=== PATIENT | female | born 1945 | race Caucasian/White ===

== ENCOUNTER → 2018-07-14 11:57 | Outpatient (CLI) | payer SELFPAY | DX: Z23 Encounter for immunization (principal) | CPT/HCPCS: 90471; 90662 ==

== ENCOUNTER → 2018-12-27 08:25 | Outpatient (CLI) | payer MEDICARE, SELFPAY ==
[2018-12-27 09:55] LABS: Blood Urea Nitrogen 16 mg/dL (7-17); Calcium 9.4 mg/dL (8.4-10.2); Carbon Dioxide 23 mmol/L (22-32); Chloride 105 mmol/L (98-107); Estimated Glomerular Filt Rate 54.1 mL/min (>60); Glucose 111 mg/dL (80-110); HEMOLYSIS < 15 (0-50); Sodium 138 mmol/L (137-145)
[2018-12-27 10:24] LABS: TSH w/ Reflex to FT4 1.41 uIU/mL (0.47-4.68)
[2018-12-27 10:38] LABS: Add Manual Diff / Slide Review NO; Basophils Absolute Auto 100 /uL (0-100); Basophils Percent Auto 2.3 % (0-2); Eosinophils Absolute Auto 400 /uL (0-450); Eosinophils Percent Auto 5.6 % (2-4); Hemoglobin 13.1 g/dL (12.0-16.0); Lymphocytes Absolute Auto 1500 /uL (1100-4500); Mean Corpuscular HGB Conc 32.9 % (30-36); Mean Corpuscular Hemoglobin 30.7 PG (26-34); Mean Corpuscular Volume 93.3 fL (80-100); Monocytes Absolute Auto 500 /uL (0-900); Monocytes Percent Auto 7.5 % (3-14); Neutrophils Absolute Auto 3900 /uL (1500-7000); Neutrophils Percent Auto 60.6 % (50-75); Platelet Count 383 X10^3/uL (150-400); Red Blood Cell Count 4.29 X10^6/uL (4.0-5.2); Red Cell Distribution Width 13.8 % (11.6-14.8); White Blood Cell Count 6.3 X10^3/uL (4.5-11.0)
[2018-12-27 10:42] LABS: Vitamin B12 > 1000 pg/mL (239-931)
== END ==
PROVIDERS: PCP Internal Medicine; Visit Provider Internal Medicine
DX: I10 Essential (primary) hypertension (principal); R53.83 Other fatigue
CPT/HCPCS: 36415; 80048; 82607; 84443; 85025

== ENCOUNTER → 2019-07-09 16:10 | Outpatient (CLI) | payer MEDICARE, SELFPAY | PROVIDERS: PCP Internal Medicine | DX: Z23 Encounter for immunization (principal) | CPT/HCPCS: 90471; 90662 ==

== ENCOUNTER → 2019-07-31 11:08 | Outpatient (CLI) | payer MEDICARE, SELFPAY ==
--- NOTE | 2019-07-31 | DI.RAD.S_ITS ---
PROCEDURE: XR CHEST 2V INDICATIONS: COUGH TECHNIQUE: 2 views of the chest were acquired. COMPARISON: None. FINDINGS: Surgical changes and devices: None. Lungs and pleura: Lungs are clear. No pleural effusions or pneumothorax. Mediastinum: Mediastinal contours are normal. Heart size is normal. Bones and chest wall: No suspicious bony abnormalities. Soft tissues appear unremarkable. IMPRESSION: No acute pulmonary process. Dictated by: Matilde Kapadia M.D. on 07/31/2019 at 16:10 Approved by: Matilde Kapadia M.D. on 07/31/2019 at 16:11
== END ==
PROVIDERS: PCP Internal Medicine; Visit Provider Internal Medicine
DX: R05 Cough (principal)
CPT/HCPCS: 71046

== ENCOUNTER → 2019-10-27 09:11 | Outpatient (CLI) | payer MEDICARE, SELFPAY ==
[2019-10-27 10:24] LABS: Blood Urea Nitrogen 22 mg/dL (7-17); Calcium 9.4 mg/dL (8.4-10.2); Carbon Dioxide 24 mmol/L (22-32); Chloride 106 mmol/L (98-107); Cholesterol 209 mg/dL (140-199); Estimated Glomerular Filt Rate 48.3 mL/min (>60); Glucose 112 mg/dL (80-110); HDL Cholesterol 59 mg/dL (40-60); HEMOLYSIS < 15 (0-50); LDL Cholesterol Calculated 135 mg/dL (<100); Potassium 4.2 mmol/L (3.4-5.1); Sodium 139 mmol/L (137-145); Triglycerides 77 mg/dL (35-150)
== END ==
PROVIDERS: PCP Internal Medicine; Referring Provider Internal Medicine; Visit Provider Internal Medicine
DX: E78.5 Hyperlipidemia, unspecified (principal); I10 Essential (primary) hypertension
CPT/HCPCS: 36415; 80048; 80061

== ENCOUNTER → 2019-11-06 10:06 | Outpatient (CLI) | payer MEDICARE, SELFPAY ==
--- NOTE | 2019-11-06 10:08 | DI.RAD.S_ITS ---
PROCEDURE: XR LUMBAR SPINE 6V W BENDING INDICATIONS: L4/5 slip with left L5 radic TECHNIQUE: 6 views of the lumbar spine acquired. COMPARISON: None. FINDINGS: Bones: 5 nonrib-bearing vertebrae are present. There is normal bony alignment. No vertebral body compression fractures. No suspicious bony lesions. Severe L2-L3, L3-L4 and L4-L5 degenerative changes. Moderate to severe L1-L2 and L5-S1 degenerative disc disease. Severe L3-L4, L4-L5 and L5-S1 facet hypertrophy. Moderate L1-L2 and L2-L3 facet hypertrophy. No pars interarticularis defects. Soft tissues: Overlying bowel gas pattern is normal. No suspicious soft tissue calcifications. Flexion/extension: There is normal range of motion, with preserved normal alignment. Cholecystectomy clips are noted. IMPRESSION: 1. Multilevel degenerative disc disease. 2. Multilevel facet arthropathy. 3. No fracture. No acute osseous lesion. If symptoms and/or clinical suspicion for pathology persists, evaluation with MRI may be helpful for further assessment. Dictated by: Kesha Flores MD, PhD on 11/06/2019 at 12:10 Approved by: Kesha Flores MD, PhD on 11/06/2019 at 12:12
== END ==
PROVIDERS: PCP Internal Medicine; Referring Provider Physical Medicine & Rehabilitation; Visit Provider Physical Medicine & Rehabilitation
DX: M51.16 Intervertebral disc disorders with radiculopathy, lumbar region (principal); M51.17 Intervertebral disc disorders with radiculopathy, lumbosacral region; M47.26 Other spondylosis with radiculopathy, lumbar region; M47.27 Other spondylosis with radiculopathy, lumbosacral region; M43.16 Spondylolisthesis, lumbar region
CPT/HCPCS: 72114

== ENCOUNTER → 2020-04-01 14:41 | Outpatient (CLI) | payer MEDICARE, SELFPAY ==
--- NOTE | 2020-04-01 | DI.RAD.S_ITS ---
PROCEDURE: XR CHEST 2V INDICATIONS: SOB TECHNIQUE: 2 views of the chest were acquired. COMPARISON: [facility], CR, XR CHEST 2V, 07/31/2019, 11:16. FINDINGS: Surgical changes and devices: None. Lungs and pleura: Lungs are clear. No pleural effusions or pneumothorax. Mediastinum: Mediastinal contours are normal. Heart size is normal. Bones and chest wall: No suspicious bony abnormalities. Soft tissues appear unremarkable. IMPRESSION: No acute cardiopulmonary disease. Dictated by: Newton Estrella [facility] Interpreted: Yosi Humphreys MD on 04/01/2020 at 14:53 Approved by: Yosi Humphreys M.D. on 04/01/2020 at 15:52
== END ==
PROVIDERS: PCP Internal Medicine; Referring Provider Internal Medicine; Visit Provider Internal Medicine
DX: R06.02 Shortness of breath (principal)
CPT/HCPCS: 71046

== ENCOUNTER → 2020-04-07 13:20 | Outpatient (CLI) | payer MEDICARE, SELFPAY ==
--- NOTE | 2020-04-07 | DI.RAD.S_ITS ---
PROCEDURE: XR FOOT LT MIN 3V INDICATIONS: LEFT FOOT PAIN TECHNIQUE: 3 views of the foot were acquired. COMPARISON: None. FINDINGS: Bones: No fractures or dislocations. No suspicious bony lesions. There is a diagonal fracture across the base of the 5th metatarsal bone, extending into the articular surface medially. Soft tissues: No tibiotalar joint effusion. Achilles tendon appears normal. IMPRESSION: 5th metatarsal base fracture, extending into the articular surface, only slightly displaced. Dictated by: Yosi Humphreys M.D. on 04/07/2020 at 15:19 Approved by: Ysoi Humphreys M.D. on 04/07/2020 at 15:20
== END ==
PROVIDERS: PCP Internal Medicine; Referring Provider Internal Medicine; Visit Provider Internal Medicine
DX: M79.672 Pain in left foot (principal); S92.352A Displaced fracture of fifth metatarsal bone, left foot, initial encounter for closed fracture; X58.XXXA Exposure to other specified factors, initial encounter
CPT/HCPCS: 73630

== ENCOUNTER → 2020-08-19 11:50 | Outpatient (CLI) | payer MEDICARE, SELFPAY ==
--- NOTE | 2020-08-19 | DI.MRI.S_ITS ---
PROCEDURE: MR LUMBAR SPINE WO CON INDICATIONS: Low back pain TECHNIQUE: Noncontrast sagittal T1 spin echo and T2 fast echo, sagittal STIR, axial T1 and T2 fast spin echo through the lumbar spine. In cases with scoliosis, additional coronal T2 fast spin echo may be performed. COMPARISON: None. FINDINGS: Image quality: Excellent. Alignment and Curvature: There is normal bony alignment. Bone Marrow: Marrow is of normal overall signal. No acute vertebral body compression fractures. Spinal Cord: Conus medullaris terminates at the L1 level. Visualized cord demonstrates normal signal and size. Paraspinous Soft Tissues: No paravertebral masses. Note is made of peripelvic cyst at the right kidney. L1-L2: Degenerative disc disease is moderate to moderately severe, and there is a posterior transverse broad-base disc bulge. Facet osteoarthritis is moderate and there is mild ligamentum flavum hypertrophy. These factors result in concentric spinal stenosis that is moderately severe crowding CSF from much of the thecal sac in this area. Both spinal and foraminal stenosis appears present, moderately severe, at L1-L2 as a result. Foraminal stenosis is slightly greater on the right than the left.. L2-L3: Moderate degenerative disc disease, small posterior transverse disc bulge. Moderate to moderately severe facet osteoarthritis greater on the left than the right and there is [id number] spinal stenosis and moderate right and moderately severe left foraminal stenosis. L3-L4: Moderate degenerative disc disease, small posterior transverse disc bulge. Moderately severe to severe facet osteoarthritis and moderate ligamentum flavum hypertrophy. The facet hyperostosis is greater on the right than the left and therefore there is a combination of moderate spinal stenosis and moderately severe right and moderate left foraminal stenosis. L4-L5: The degenerative disc disease at this level is near severe, with a moderate posterior transverse disc bulge and this combines with severe bilateral facet osteoarthritis and moderately severe ligamentum flavum hypertrophy to produce concentric severe spinal stenosis. Severe bilaterally symmetric foraminal stenosis also is present. L5-S1: Degenerative disc disease is moderately severe, but there is only a mild posterior disc bulge. Facet osteoarthritis is moderately severe to severe, and there is ligamentum flavum hypertrophy. These factors result in concentric spinal stenosis and near severe bilateral foraminal stenosis. IMPRESSION: Overall there are severe degenerative changes along the lumbosacral spine comprised of both spinal and foraminal stenosis as discussed in detail by level in the body of the report above. A disc herniation is not found. The foraminal stenosis is both symmetric and asymmetric as detailed by level. The spinal stenosis noted is concentric, symmetric. Multilevel radiculopathy would be expected in this circumstance. Dictated by: Yosi Humphreys M.D. on 08/19/2020 at 16:01 Approved by: Yosi Humphreys M.D. on 08/19/2020 at 16:10
== END ==
PROVIDERS: PCP Internal Medicine; Referring Provider Internal Medicine; Visit Provider Internal Medicine
DX: M54.5 Low back pain (principal); M51.36 Other intervertebral disc degeneration, lumbar region; M51.37 Other intervertebral disc degeneration, lumbosacral region; M47.816 Spondylosis without myelopathy or radiculopathy, lumbar region; M47.817 Spondylosis without myelopathy or radiculopathy, lumbosacral region; M48.061 Spinal stenosis, lumbar region without neurogenic claudication; M48.07 Spinal stenosis, lumbosacral region
CPT/HCPCS: 72148

== ENCOUNTER → 2021-05-23 16:21 | Outpatient (CLI) | payer MEDICARE, SELFPAY ==
[2021-05-23 16:54] LABS: COVID19 -Nasal RAPID Negative (Negative)
== END ==
PROVIDERS: PCP Internal Medicine; Visit Provider Physical Medicine & Rehabilitation
DX: Z20.822 Contact with and (suspected) exposure to COVID-19 (principal)
CPT/HCPCS: 87635; C9803

== ENCOUNTER 2021-05-25 09:22 | Outpatient (CLI) | payer MEDICARE, SELFPAY ==
[2021-05-25] VITALS (8 sets, daily range): BP systolic 100–127; BP diastolic 58–73; PULSE 61–77; RESP 14–21; TEMP 36.8; O2SAT 93–99
--- NOTE | 2021-05-25 09:23 | DI.RAD.S_ITS ---
PROCEDURE: PAIN L INTERLAMINAR/CAUDAL INJ INDICATIONS: SPONDYLOSIS COMPARISON: None. FINDINGS: Fluoroscopic spot filming was performed to verify placement of spinal needles at the right L4-L5 interlaminar space, as labeled on the films. Appropriate location(s) of the needle tip(s) was confirmed by injection of iodinated contrast. IMPRESSION: Access needle localizes to the right L4-L5 interlaminar space Dictated by: Kesha Flores MD, PhD on 05/25/2021 at 11:54 Approved by: Kesha Flores MD, PhD on 05/25/2021 at 11:55
[2021-05-25] MEDS: fentaNYL 100 MCG/2 ML INJ 50 MCG IV (11:27)
[2021-05-25] MEDS: MIDAZOLAM 5 MG/5 ML VIAL IV (11:27)
[2021-05-25] MEDS: IOPAMIDOL 15 ML VIAL 3 ML INJ (11:28)
[2021-05-25] MEDS: BUPIVACAINE 0.25% (PF) VIAL 2 ML INJ (11:28)
[2021-05-25] MEDS: DEXAMETHASONE 10 MG/ML VIAL 20 MG INJ (11:29)
[2021-05-25] MEDS: methylPREDNISolone acetate 80 MG/ML VIAL INJ (11:33)
--- NOTE | 2021-05-25 11:38 | P.PCN_ITS ---
Date/Time/Diagnoses Date of procedure: 05/25/21 Time of procedure: 11:38 Pre-procedure diagnosis: 1. HNP WITH RADICULAR FEATURES, 2. MULTILEVEL CENTRAL STENOSIS, Post-procedure diagnosis: same Procedure Notes Procedure: 1. FLUOROSCOPICALLY GUIDED CONTRAST CONTROLLED INTERLAMINAR EPIDURAL STEROID INJECTION -L4/5 Indications: Tanisha is referred by Dr. Cervantes for treatment of Bilateral Foraminal Stenosis R>L LE symptoms. Physician: Cornelio Whitlock Total Fluoroscopy time (seconds): 9 Total sedation minutes: 7 Complications: none Procedure in detail & Post-procedure care: FINDINGS Multilevel Central Spinal Stenosis with Nerve Root Compression DESCRIPTION OF PROCEDURE Fluoroscopically guided, contrast-controlled L4/5 translaminar epidural steroid injection. Following review of allergy and review of potential side effects and complications, including, but not necessarily limited to, infection, allergic reaction, local tissue breakdown, temporary as well as permanent nerve injury, paralysis, stroke and possible , the patient indicated that the patient understood and agreed to proceed. An informed consent document was signed by the patient, witnessed by a nurse, and placed in the patient's chart. Additionally, other treatment options including modalities, medications, and physical therapy were reviewed with the patient. After review of previous anaesthesic history and IV conscious sedation the patient was deemed safe to proceed with today?s procedure with IV conscious sedation as ASA class II designation. Safety time-out was performed to confirm patient ID, procedure to be performed and site of procedure. IV sedation was accomplished with a combination of 2mg of Versed and 50mcg of Fentanyl was administered by the RN after DO order, titrated to patient comfort during the course of the procedure while the patient remained responsive to all verbal commands In the prone position, following sterile prep and drape of the lumbar region, the L4/5 translaminar space was identified fluoroscopically. The skin was anesthetized via a 25-gauge, 1.5inch needle with 1% lidocaine solution. At this point, a 22-gauge short bevel spinal needle was atraumatically introduced and advanced under fluoroscopic guidance into the region of the L4/5 translaminar space. Depth was confirmed on lateral view. Radiological data, including multiple fluoroscopic views of the lumbar spine, reveal a spinal needle at the L4/5 translaminar space. Lateral views then show placement of the needle in the epidural space. Subsequent views show contrast material flowing superiorly and inferiorly in the epidural space. No vascular or intrathecal uptake is observed. At this point, using loss of resistance technique with saline and air, the epidural space was entered. This was confirmed following negative aspiration with injection of approximately 1.5cc of Isovue 200, showing excellent epidural flow without vascular or intrathecal uptake. At this point, 1cc of 1% lidocaine solution combined with 3cc or 20mg of dexamethasone and 6mg betamethasone was injected without incident. The patient tolerated the procedure well without signs or symptoms of complicati ons prior to transfer to the recovery area continued monitoring without incident. The patient was then transferred to the recovery area where they were observed for an appropriate period of time after the injection. The patient reported a VAS score of 6 prior to the procedure and a post- procedure VAS of 0. POST OP INSTRUCTIONS The patient was provided a Pain Log to continue to record their response to the target-specific procedure prior to follow-up visit with their referring physician. Additionally, specific post-injection care instructions and a contact number to our office were provided if concerns arise regarding possible complications associated with the procedure are suspected.
== END 2021-05-25 12:00 | disposition home or self-care (01) ==
LOC: RAD 09:23
PROVIDERS: PCP Internal Medicine; Referring Provider Physical Medicine & Rehabilitation; Visit Provider Physical Medicine & Rehabilitation
DX: M48.062 Spinal stenosis, lumbar region with neurogenic claudication (principal); M51.16 Intervertebral disc disorders with radiculopathy, lumbar region
CPT/HCPCS: 62323; 99152; J1040; J1100; J2250; J3010

== ENCOUNTER → 2021-07-25 10:31 | Outpatient (CLI) | payer MEDICARE, SELFPAY ==
[2021-07-25 11:48] LABS: COVID19 -Nasal RAPID Negative (Negative)
== END ==
PROVIDERS: PCP Internal Medicine; Visit Provider Physical Medicine & Rehabilitation
DX: Z20.822 Contact with and (suspected) exposure to COVID-19 (principal)
CPT/HCPCS: 87635; C9803

== ENCOUNTER 2021-07-27 12:54 | Outpatient (CLI) | payer MEDICARE, SELFPAY ==
[2021-07-27] VITALS (8 sets, daily range): BP systolic 107–130; BP diastolic 54–71; PULSE 66–82; RESP 11–22; TEMP 36.9; O2SAT 92–99
[2021-07-27] MEDS: fentaNYL 100 MCG/2 ML INJ 50 MCG IV (13:50)
[2021-07-27] MEDS: MIDAZOLAM 5 MG/5 ML VIAL IV (13:50)
[2021-07-27] MEDS: BETAMETHASONE 30 MG/5 ML MDV 12 MG INJ (13:53)
[2021-07-27] MEDS: BUPIVACAINE 0.25% (PF) VIAL 2 ML INJ (13:53)
[2021-07-27] MEDS: IOPAMIDOL 15 ML VIAL 3 ML INJ (13:53)
[2021-07-27] MEDS: DEXAMETHASONE 10 MG/ML VIAL 20 MG INJ (13:54)
--- NOTE | 2021-07-27 14:00 | P.PCN_ITS ---
Date/Time/Diagnoses Date of procedure: 07/27/21 Time of procedure: 14:00 Pre-procedure diagnosis: 1. HNP WITH RADICULAR FEATURES, 2. MULTILEVEL CENTRAL STENOSIS, Post-procedure diagnosis: same Procedure Notes Procedure: 1. FLUOROSCOPICALLY GUIDED CONTRAST CONTROLLED INTERLAMINAR EPIDURAL STEROID INJECTION - L1/2 Indications: Tanisha is referred by Dr. Cervantes for treatment of Bilateral Foraminal Stenosis L>R LE symptoms. Physician: Cornelio Whitlock Total Fluoroscopy time (seconds): 4 Total sedation minutes: 5 Complications: none Procedure in detail & Post-procedure care: FINDINGS Multilevel Central Spinal Stenosis with Nerve Root Compression DESCRIPTION OF PROCEDURE Fluoroscopically guided, contrast-controlled L1/2 translaminar epidural steroid injection. Following review of allergy and review of potential side effects and complications, including, but not necessarily limited to, infection, allergic reaction, local tissue breakdown, temporary as well as permanent nerve injury, paralysis, stroke and possible , the patient indicated that the patient understood and agreed to proceed. An informed consent document was signed by the patient, witnessed by a nurse, and placed in the patient's chart. Additionally, other treatment options including modalities, medications, and physical therapy were reviewed with the patient. After review of previous anaesthesic history and IV conscious sedation the patient was deemed safe to proceed with todays procedure with IV conscious sedation as ASA class II designation. Safety time-out was performed to confirm patient ID, procedure to be performed and site of procedure. IV sedation was accomplished with a combination of 2mg of Versed and 50mcg of Fentanyl was administered by the RN after DO order, titrated to patient comfort during the course of the procedure while the patient remained responsive to all verbal commands In the prone position, following sterile prep and drape of the lumbar region, the L1/2 translaminar space was identified fluoroscopically. The skin was anesthetized via a 25-gauge, 1.5-inch needle with 1% lidocaine solution. At this point, a 22-gauge short bevel spinal needle was atraumatically introduced and advanced under fluoroscopic guidance into the region of the L1/2 translaminar space. Depth was confirmed on lateral view. Radiological data, including multiple fluoroscopic views of the lumbar spine, reveal a spinal needle at the L1/2 translaminar space. Lateral views then show placement of the needle in the epidural space. Subsequent views show contrast material flowing superiorly and inferiorly in the epidural space. No vascular or intrathecal uptake is observed. At this point, using loss of resistance technique with saline and air, the epidural space was entered. This was confirmed following negative aspiration with injection of approximately 1.5 cc of Isovue 200, showing excellent epidural flow without vascular or intrathecal uptake. At this point, 1 cc of 1% lidocaine solution combined with 4cc or 20mg of dexamethasone and 12mg of betamethasone was injected without incident. The patient tolerated the procedure well without signs or symptoms of complications prior to transfer to the recovery area continued monitoring without incident. The patient was then transferred to the recovery area where they were observed for an appropriate period of time after the injection. The patient reported a VAS score of 6 prior to the procedure and a post- procedure VAS of 0. POST OP INSTRUCTIONS The patient was provided a Pain Log to continue to record their response to the target-specific procedure prior to follow-up visit with their referring physician. Additionally, specific post-injection care instructions and a contact number to our office were provided if concerns arise regarding possible complications associated with the procedure are suspected.
--- NOTE | 2021-07-27 14:05 | DI.RAD.S_ITS ---
PROCEDURE: PAIN L INTERLAMINAR/CAUDAL INJ INDICATIONS: SPONDYLOSIS COMPARISON: [facility], XA, PAIN L INTERLAMINAR/CAUDAL INJ, 05/25/2021, 11:29. FINDINGS: Fluoroscopic spot filming was performed to verify placement of a spinal needle at the L1-L2 level, as labeled on the films. Appropriate location of the needle tip was confirmed by injection of iodinated contrast. IMPRESSION: Intraprocedural examination within normal limits. Dictated by: Gabriel Oropeza M.D. on 07/27/2021 at 13:50 Approved by: Gabriel Oropeza M.D. on 07/27/2021 at 13:50
== END 2021-07-27 14:30 | disposition home or self-care (01) ==
LOC: RAD 12:55
PROVIDERS: PCP Internal Medicine; Referring Provider Physical Medicine & Rehabilitation; Visit Provider Physical Medicine & Rehabilitation
DX: M48.062 Spinal stenosis, lumbar region with neurogenic claudication (principal); M51.16 Intervertebral disc disorders with radiculopathy, lumbar region
CPT/HCPCS: 62323; J0702; J1100; J2250; J3010

== ENCOUNTER 2023-01-29 12:06 | Outpatient (CLI) | payer MEDICARE, SELFPAY ==
[2023-01-29] VITALS (8 sets, daily range): BP systolic 103–141; BP diastolic 57–91; PULSE 69–85; RESP 14–20; TEMP 36.1; O2SAT 95–98
--- NOTE | 2023-01-29 12:08 | DI.RAD.S_ITS ---
PROCEDURE: PAIN L INTERLAMINAR/CAUDAL INJ INDICATIONS: SPONDYLOSIS COMPARISON: [facility], , PAIN L INTERLAMINAR/CAUDAL INJ, 07/27/2021, 13:51. FINDINGS: Fluoroscopic spot filming was performed to verify placement of a spinal needle at the L1-L2 level, as labeled on the films. Appropriate location of the needle tip was confirmed by injection of iodinated contrast. IMPRESSION: Intraprocedural examination within normal limits. Dictated by: Gabriel Oropeza M.D. on 01/29/2023 at 12:04 Approved by: Gabriel Oropeza M.D. on 01/29/2023 at 12:05
[2023-01-29] MEDS: MIDAZOLAM 2 MG/2 ML VIAL IV (12:37)
[2023-01-29] MEDS: BUPIVACAINE 0.25% (PF) VIAL 2 ML INJ (12:40)
[2023-01-29] MEDS: DEXAMETHASONE 10 MG/ML VIAL 20 MG INJ (12:40)
[2023-01-29] MEDS: IOPAMIDOL 15 ML VIAL 3 ML INJ (12:41)
[2023-01-29] MEDS: methylPREDNISolone acetate 80 MG/ML VIAL INJ (12:41)
--- NOTE | 2023-01-29 12:53 | P.PCN_ITS ---
Date/Time/Diagnoses Date of procedure: 01/29/23 Time of procedure: 12:53 Pre-procedure diagnosis: 1. HNP WITH RADICULAR FEATURES, 2. MULTILEVEL CENTRAL STENOSIS, Post-procedure diagnosis: same Procedure Notes Procedure: 1. FLUOROSCOPICALLY GUIDED CONTRAST CONTROLLED INTERLAMINAR EPIDURAL STEROID INJECTION - L1/2 Indications: Tanisha is referred by Dr. Cervantes for treatment of Bilateral Foraminal Stenosis L>R LE symptoms. Physician: Cornelio Whitlock Total Fluoroscopy time (seconds): 10 Total sedation minutes: 7 Complications: none Procedure in detail & Post-procedure care: FINDINGS Multilevel Central Spinal Stenosis with Nerve Root Compression DESCRIPTION OF PROCEDURE Fluoroscopically guided, contrast-controlled L1/2 translaminar epidural steroid injection. Following review of allergy and review of potential side effects and complications, including, but not necessarily limited to, infection, allergic reaction, local tissue breakdown, temporary as well as permanent nerve injury, paralysis, stroke and possible , the patient indicated that the patient understood and agreed to proceed. An informed consent document was signed by the patient, witnessed by a nurse, and placed in the patient's chart. Additionally, other treatment options including modalities, medications, and physical therapy were reviewed with the patient. After review of previous anaesthesic history and IV conscious sedation the patient was deemed safe to proceed with todays procedure with IV conscious sedation as ASA class II designation. Safety time-out was performed to confirm patient ID, procedure to be performed and site of procedure. IV sedation was accomplished with a combination of 2mg of Versed was administered by the RN after DO order, titrated to patient comfort during the course of the procedure while the patient remained responsive to all verbal commands In the prone position, following sterile prep and drape of the lumbar region, the L1/2 translaminar space was identified fluoroscopically. The skin was anesthetized via a 25-gauge, 1.5-inch needle with 1% lidocaine solution. At this point, a 22-gauge short bevel spinal needle was atraumatically introduced and advanced under fluoroscopic guidance into the region of the L1/2 translaminar space. Depth was confirmed on lateral view. Radiological data, including multiple fluoroscopic views of the lumbar spine, reveal a spinal needle at the L1/2 translaminar space. Lateral views then show placement of the needle in the epidural space. Subsequent views show contrast material flowing superiorly and inferiorly in the epidural space. No vascular or intrathecal uptake is observed. At this point, using loss of resistance technique with saline and air, the epidural space was entered. This was confirmed following negative aspiration with injection of approximately 1.5 cc of Isovue 200, showing excellent epidural flow without vascular or intrathecal uptake. At this point, 1 cc of 1% lidocaine solution combined with 3cc or 20mg of dexamethasone and 80mg of depo medrol was injected without incident. The patient tolerated the procedure well without signs or symptoms of complications prior to transfer to the recovery area continued monitoring without incident. The patient was then transferred to the recovery area where they were observed for an appropriate period of time after the injection. The patient reported a VAS score of 6 prior to the procedure and a post- procedure VAS of 0. POST OP INSTRUCTIONS The patient was provided a Pain Log to continue to record their response to the target-specific procedure prior to follow-up visit with their referring physician. Additionally, specific post-injection care instructions and a contact number to our office were provided if concerns arise regarding possible complications associated with the procedure are suspected.
== END 2023-01-29 13:15 | disposition home or self-care (01) ==
LOC: RAD 12:07
PROVIDERS: PCP Internal Medicine; Referring Provider Physical Medicine & Rehabilitation; Visit Provider Physical Medicine & Rehabilitation
DX: M51.16 Intervertebral disc disorders with radiculopathy, lumbar region (principal); M48.061 Spinal stenosis, lumbar region without neurogenic claudication
CPT/HCPCS: 62323; 99152; J1040; J1100; J2250; J3490

== ENCOUNTER → 2023-02-07 12:24 | Outpatient (CLI) | payer MEDICARE, SELFPAY ==
--- NOTE | 2023-02-07 12:26 | DI.RAD.S_ITS ---
PROCEDURE: XR KNEE RT 3V INDICATIONS: bilateral knee pain TECHNIQUE: 3 views of the knee were acquired. COMPARISON: None. FINDINGS: Bones: No fractures or dislocations. No suspicious bony lesions. Mild tricompartmental periarticular osteophyte formation. Soft tissues: Moderate knee joint effusion. No suspicious soft tissue calcifications. IMPRESSION: 1. Osteoarthritis. 2. Knee joint effusion. 3. No acute fracture. No osseous lesion. If symptoms and/or clinical suspicion for pathology persist, further assessment with repeat, or advanced imaging (e.g., CT, MRI, or bone scan) may be helpful for further assessment. Dictated by: Bruno Lutz M.D. on 02/07/2023 at 13:58 Transcribed by: FRANCISCA on 02/07/2023 at 13:59 Approved by: Bruno Lutz M.D. on 02/07/2023 at 16:01
--- NOTE | 2023-02-07 12:26 | DI.RAD.S_ITS ---
PROCEDURE: XR KNEE LT 3V INDICATIONS: bilateral knee pain TECHNIQUE: 3 views of the knee were acquired. COMPARISON: None. FINDINGS: Bones: No fractures or dislocations. No suspicious bony lesions. Mild periarticular osteophyte formation. Soft tissues: No joint effusion. No suspicious soft tissue calcifications. IMPRESSION: Osteoarthritis. No acute fracture. No osseous lesion. If symptoms and/or clinical suspicion for pathology persist, further assessment with repeat, or advanced imaging (e.g., CT, MRI, or bone scan) may be helpful for further assessment. Dictated by: Bruno Lutz M.D. on 02/07/2023 at 13:56 Transcribed by: FRANCISCA on 02/07/2023 at 13:58 Approved by: Bruno Lutz M.D. on 02/07/2023 at 16:00
== END ==
PROVIDERS: PCP Internal Medicine; Referring Provider Internal Medicine; Visit Provider Internal Medicine
DX: M17.0 Bilateral primary osteoarthritis of knee (principal)
CPT/HCPCS: 73562

== ENCOUNTER → 2023-02-08 14:27 | Outpatient (CLI) | payer MEDICARE, SELFPAY ==
--- NOTE | 2023-02-08 14:47 | DI.DEXA.S_ITS ---
Bone Density Report Name: GAMALIEL ELAM Age: 77 Sex: Female Ethnicity: White Date of : 1945 Indication: postmenopausal; screening for osteoporosis; Referring Provider: BRADLEY AVERY Study: Bone densitometry was performed. Exam Date: February 08, 2023 Accession number: [id number] Bone Density: Region BMD T-score Z-score Classification AP Spine(L1, L2, L4) 1.294 2.4 5.0 Normal Femoral Neck (Left) 0.640 -1.9 0.4 Osteopenia Total Hip (Left) 0.721 -1.8 0.2 Osteopenia Femoral Neck (Right) 0.544 -2.7 -0.5 Osteoporosis Total Hip (Right) 0.669 -2.2 -0.2 Osteopenia Total Hip Mean 0.695 -2.0 0.0 Osteopenia World Health Organization criteria for BMD impression classify patients as: Normal (T-score at or above -1.0), Osteopenia (T-score between -1.0 and -2.5), or Osteoporosis (T-score at or below -2.5). 10-year Fracture Risk: FRAX not reported because: Some T-score for Spine Total or Hip Total or Femoral Neck at or below -2.5 Impression: The patient has osteoporosis, based on the Right Femoral Neck T-score. Discussion: INCREASED RISK OF FRACTURE. BONE DENSITY IS UNDESIRABLY LOW AT ONE OR MORE SKELETAL SITES, CONSISTENT WITH POSTMENOPAUSAL OSTEOPOROSIS. This patient's lowest T-score meets the World Health Organization's (WHO) criteria for osteoporosis at one or more sites (T-score -2.5 or below). In untreated patients, the risk of osteoporotic fracture increases approximately two-fold for each 1.0 SD decrease in T-score. Low bone density is not the only risk factor for fracture; also consider factors such as patient's age, frailty or poor health, risk of falling, risk of injury, previous osteoporotic fracture, family history of osteoporosis, cigarette smoking, low body weight, etc. Not everyone with low bone mineral density has osteoporosis; osteomalacia and other metabolic bone disorders should also be considered. Patients who have osteoporosis should be evaluated for specific diseases and conditions (secondary causes) that may cause or contribute to bone loss. The [place] [employer] (AACE) and National Osteoporosis Foundation (NOF) recommend pharmacologic intervention for all postmenopausal women whose T-score is in this range. The patient should follow a healthful lifestyle (good nutrition with adequate calcium and vitamin D, and appropriate weight-bearing exercise). Follow-Up: Consider a repeat BMD and Vertebral Fracture Assessment (VFA) exam in 2 years or sooner if medically necessary, to reassess this patient's status. Reported by: FARHAD DEAL M.D. on 02/08/2023 2:57:00 PM.
== END ==
PROVIDERS: PCP Internal Medicine; Referring Provider Internal Medicine; Visit Provider Internal Medicine
DX: M81.0 Age-related osteoporosis without current pathological fracture (principal)
CPT/HCPCS: 77080

== ENCOUNTER → 2024-01-11 08:58 | Outpatient (CLI) | payer MEDICARE, SELFPAY ==
--- NOTE | 2024-01-11 09:03 | DI.RAD.S_ITS ---
PROCEDURE: XR CHEST 2V INDICATIONS: Fatigue, SOB, Hx of Asthma and Hiatal Hernia TECHNIQUE: 2 views of the chest were acquired. COMPARISON: [facility], CR, XR CHEST 2V, 04/01/2020, 14:35. FINDINGS: Surgical changes and devices: None. Lungs and pleura: Slight bibasilar interstitial prominence, likely reflecting atelectasis and/or scarring. Lungs are clear. No pleural effusions or pneumothorax. Mediastinum: Small hiatal hernia.. Heart size is normal. Bones and chest wall: No suspicious bony abnormalities. Soft tissues appear unremarkable. IMPRESSION: No acute cardiopulmonary abnormality is seen. Dictated by: Allen Oconnell M.D. on 01/11/2024 at 16:10 Approved by: Allen Oconnell M.D. on 01/11/2024 at 16:12
--- NOTE | 2024-01-11 09:03 | DI.RAD.S_ITS ---
PROCEDURE: XR KNEE LT 3V INDICATIONS: progressive pain with loss of ROM TECHNIQUE: 3 views of the knee were acquired. COMPARISON: [facility], CR, XR KNEE RT 3V, 02/07/2023, 12:32. FINDINGS: Bones: No fractures or dislocations. No suspicious bony lesions. Mild medial joint space narrowing with peritoneal air osteophytes in the medial and patellofemoral compartment. Soft tissues: No joint effusion. No suspicious soft tissue calcifications. IMPRESSION: No acute bony abnormality or significant effusion. Mild osteoarthritic changes of the knee. Dictated by: Allen Oconnell M.D. on 01/11/2024 at 16:12 Approved by: Allen Oconnell M.D. on 01/11/2024 at 16:13
[2024-01-11 09:52] LABS: Add Manual Diff / Slide Review NO; Basophils Absolute Auto 100 /uL (0-100); Basophils Percent Auto 1.2 % (0-2); Eosinophils Absolute Auto 300 /uL (0-450); Eosinophils Percent Auto 2.7 % (2-4); Hematocrit 31.7 % (36-46); Hemoglobin 10.6 g/dL (12.0-16.0); Lymphocytes Absolute Auto 1500 /uL (1100-4500); Lymphocytes Percent Auto 15.2 % (25-40); Mean Corpuscular HGB Conc 33.4 % (30-36); Mean Corpuscular Hemoglobin 29.9 PG (26-34); Mean Corpuscular Volume 89.5 fL (80-100); Monocytes Absolute Auto 600 /uL (0-900); Monocytes Percent Auto 6.2 % (3-14); Neutrophils Absolute Auto 7500 /uL (1500-7000); Neutrophils Percent Auto 74.7 % (50-75); Platelet Count 452 X10^3/uL (150-400); Red Blood Cell Count 3.55 X10^6/uL (4.0-5.2); Red Cell Distribution Width 16.3 % (11.6-14.8)
[2024-01-11 10:07] LABS: Erythrocyte Sedimentation Rate 64 MM/HR (0-20)
[2024-01-11 10:13] LABS: HEMOLYSIS < 15 (0-50); Iron 108 ug/dL (37-170)
[2024-01-11 10:18] LABS: Alanine Aminotransferase 12 IU/L (<35); Albumin 4.2 g/dL (3.5-5.0); Albumin Globulin Ratio 1.6 (1.0-2.8); Alkaline Phosphatase 79 U/L (38-126); Aspartate Aminotransferase 18 IU/L (14-36); Bilirubin Total 0.9 mg/dL (0.2-1.3); Blood Urea Nitrogen 14 mg/dL (7-17); Calcium 9.4 mg/dL (8.4-10.2); Carbon Dioxide 25 mmol/L (22-32); Chloride 108 mmol/L (98-107); Cholesterol 201 mg/dL (140-199); Estimated Glomerular Filt Rate 57 mL/min (>60); Globulin 2.6 g/dL (1.7-4.1); Glucose 117 mg/dL (80-110); HDL Cholesterol 67 mg/dL (40-60); HEMOLYSIS < 15 (0-50); LDL Cholesterol Calculated 118 mg/dL (<100); Potassium 4.1 mmol/L (3.4-5.1); Sodium 136 mmol/L (137-145); Total Protein 6.8 g/dL (6.3-8.2); Triglycerides 82 mg/dL (35-150)
[2024-01-11 10:24] LABS: Percent Iron Saturation 33 % (15-50); Total Iron Binding Capacity 328 ug/dL (265-497); Transferrin 256 mg/dL (206-381)
[2024-01-11 10:46] LABS: TSH w/ Reflex to FT4 1.78 uIU/mL (0.47-4.68)
[2024-01-11 11:03] LABS: Vitamin B12 906 pg/mL (239-931)
== END ==
PROVIDERS: PCP Internal Medicine; Referring Provider Physical Medicine & Rehabilitation; Visit Provider Physical Medicine & Rehabilitation
DX: R06.02 Shortness of breath (principal); E78.5 Hyperlipidemia, unspecified; R53.83 Other fatigue; M17.0 Bilateral primary osteoarthritis of knee
CPT/HCPCS: 36415; 71046; 73562; 80053; 80061; 82306; 82607; 83540; 83550; 84443; 85025; 85651

== ENCOUNTER → 2024-01-24 13:42 | Outpatient (CLI) | payer MEDICARE, SELFPAY ==
--- NOTE | 2024-01-24 | DI.RAD.S_ITS ---
PROCEDURE: FL BARIUM SWALLOW INDICATIONS: Other dysphagia COMPARISON: [facility], CR, XR CHEST 2V, 04/01/2020, 14:35. FINDINGS: Function: There is moderate esophageal dysmotility with disorganized tertiary contractions. Severe elicited gastroesophageal reflux. There is obstruction a calibrated barium tablet in the distal esophagus. Morphology: There is short segment focal narrowing and irregularity in the distal esophagus suspicious for mild stricture. Extrinsic mass effects is noted upon the distal esophagus secondary to a moderate to large paraesophageal hiatal hernia. No esophageal diverticula. IMPRESSION: 1. Short segment narrowing and irregularity of the distal esophagus suggesting stricture. Consider EGD for follow-up evaluation. 2. Moderate to large sized paraesophageal hiatal hernia with mass effect upon the distal esophagus. 3. Moderate esophageal dysmotility. 4. Severe gastroesophageal reflux. Dictated by: Juan J Tolliver M.D. on 01/24/2024 at 14:56 Approved by: Juan J Tolliver M.D. on 01/24/2024 at 15:02
== END ==
PROVIDERS: PCP Internal Medicine; Referring Provider Nurse Practitioner Family; Visit Provider Nurse Practitioner Family
DX: R13.19 Other dysphagia (principal); R63.4 Abnormal weight loss; K44.9 Diaphragmatic hernia without obstruction or gangrene; K22.89 Other specified disease of esophagus; K21.9 Gastro-esophageal reflux disease without esophagitis
CPT/HCPCS: 74220

== ENCOUNTER → 2025-03-18 11:19 | Outpatient (CLI) | payer MEDICARE, SELFPAY ==
--- NOTE | 2025-03-18 11:24 | DI.RAD.S_ITS ---
PROCEDURE: XR CHEST 2V INDICATIONS: CHRONIC COUGH TECHNIQUE: 2 views of the chest were acquired. COMPARISON: [facility], CR, XR CHEST 2V, 01/11/2024, 9:15. FINDINGS: Heart, mediastinum and pulmonary vascular: Heart is normal in size and configuration. Small hiatal hernia again noted- mediastinum otherwise normal Pulmonary vascular is normal. Lungs: Moderate patchy vague infiltrate in the right lower lobe appreciated. This may be recurrent or chronic. Pleural spaces: Normal-no effusions or pneumothorax. Bones and soft tissues: Normal IMPRESSION: Moderate patchy right lower lobe infiltrate. This may be recurrent or chronic Small hiatal hernia Dictated by: Bal Colon M.D. on 03/19/2025 at 12:03 Approved by: Bal Colon M.D. on 03/19/2025 at 12:05
== END ==
LOC: RAD 11:22
PROVIDERS: PCP Internal Medicine; Referring Provider Internal Medicine; Visit Provider Internal Medicine
DX: R05.3 Chronic cough (principal); R91.8 Other nonspecific abnormal finding of lung field; K44.9 Diaphragmatic hernia without obstruction or gangrene
CPT/HCPCS: 71046

== ENCOUNTER → 2025-04-19 11:20 | Outpatient (CLI) | payer MEDICARE, SELFPAY ==
--- NOTE | 2025-04-19 11:24 | DI.RAD.S_ITS ---
PROCEDURE: XR CHEST 2V INDICATIONS: CHRONIC COUGH TECHNIQUE: 2 views of the chest were acquired. COMPARISON: [facility], CR, XR CHEST 2V, 03/18/2025, 10:35. [facility], CR, XR CHEST 2V, 01/11/2024, 9:15. FINDINGS: Surgical changes and devices: Cholecystectomy clips. Lungs and pleura: Prominent pulmonary markings most pronounced at the lung bases. Unchanged. No pleural effusions or pneumothorax. Mediastinum: Mediastinal contours are normal. Heart size is normal. Bones and chest wall: No suspicious bony abnormalities. Soft tissues appear unremarkable. IMPRESSION: No consolidation. Prominent pulmonary markings most pronounced at the lung bases. This finding could be due to interstitial lung disease. Consider further evaluation with CT chest or high-resolution chest CT. Dictated by: Ren Abraham M.D. on 04/19/2025 at 14:26 Approved by: Ren Abraham M.D. on 04/19/2025 at 14:28
== END ==
PROVIDERS: PCP Internal Medicine; Referring Provider Internal Medicine; Visit Provider Internal Medicine
DX: R05.3 Chronic cough (principal)
CPT/HCPCS: 71046

== ENCOUNTER → 2025-04-20 12:51 | Outpatient (CLI) | payer MEDICARE, SELFPAY ==
--- NOTE | 2025-04-20 12:52 | DI.CT.S_ITS ---
PROCEDURE: CT CHEST WO CON INDICATIONS: CHRONIC COUGH TECHNIQUE: Noncontrast 5 mm thick sections acquired from the pulmonary apices to the posterior costophrenic angles. 1 mm lung window, 5 mm thick coronal and sagittal and 7 mm axial MIP reformats were then acquired. For radiation dose reduction, the following was used: automated exposure control, adjustment of mA and/or kV according to patient size. COMPARISON: None. FINDINGS: Image quality: Diagnostic. Moderate bilateral perihilar and lower lobe peribronchial thickening and patchy alveolar opacities, as well as some bronchial filling and or mucous plugging posterior bilateral lower lobes. Bronchopneumonia, viral infection, bronchitis/bronchiolitis, aspiration pneumonitis, asthma or other process should be considered. Continued follow-up is needed. Large hiatal hernia paraesophageal type is noted which may predispose to gastric volvulus although no CT evidence of volvulus at this time. Nonspecific wall thickening of the mid and distal esophagus into the stomach some of which may be artifact from partial nondistention although esophagitis, gastritis or other process could be considered. Mildly enlarged mediastinal, aortic or pulmonary, anterior tracheal, bilateral paratracheal, subcarinal lymph nodes the largest conglomeration left lobe paratracheal measures up to approximately 1.2 cm short axis commonly reactive/inflammatory although given the size cannot exclude pathologically enlarged, neoplastic, metastatic nodes. Irregular appearance of the superior aspect of the left kidney commonly represents numerous parapelvic cysts although left hydronephrosis not excluded partially imaged. Surgical clips status post cholecystectomy. Otherwise visualized portions of the liver, pancreas, adrenal glands, spleen, right kidney within normal limits. Mild dextroscoliosis, moderate degenerative changes of the thoracic spine. Lower Neck: No enlarged lymph nodes. Thyroid: No thyroid nodules which require sonographic follow up, per consensus guidelines. Lungs and Pleura: No pneumothorax or pleural effusions. Heart: Heart size is normal. No pericardial effusion. Thoracic Vessels: The aorta and pulmonary arteries demonstrate normal size. IMPRESSION: Abnormal peribronchial thickening and patchy opacities predominantly in the lower lobes as discussed above. Mildly enlarged lymph nodes as discussed above. Left renal peripelvic cyst cannot exclude hydronephrosis partially imaged. Large hiatal hernia with wall thickening distal esophagus into the stomach. Follow-up suggested. Dictated by: Souleymane Garcia M.D. on 04/21/2025 at 11:38 Approved by: Souleymane Garcia M.D. on 04/21/2025 at 11:58
== END ==
PROVIDERS: PCP Internal Medicine; Referring Provider Internal Medicine; Visit Provider Internal Medicine
DX: K44.9 Diaphragmatic hernia without obstruction or gangrene (principal); R59.0 Localized enlarged lymph nodes; N28.1 Cyst of kidney, acquired; R05.3 Chronic cough
CPT/HCPCS: 71250

== ENCOUNTER 2025-04-21 14:56 | Inpatient (IN) | payer MEDICARE, SELFPAY ==
[2025-04-21] VITALS (8 sets, daily range): BP systolic 111–191; BP diastolic 51–96; PULSE 83–129; RESP 17–30; TEMP 36.8–38.6; O2SAT 92–94; BMI 24.7; BMI 25.4
--- NOTE | 2025-04-21 15:42 | DI.RAD.S_ITS ---
PROCEDURE: XR CHEST 1V INDICATIONS: suspected sepsis TECHNIQUE: One view of the chest was acquired. COMPARISON: [facility], CR, XR CHEST 2V, 04/19/2025, 11:21. [facility], CT, CT CHEST WO CON, 04/20/2025, 13:01. FINDINGS: Surgical changes and devices: None. Lungs and pleura: Mild bibasilar patchy reticulonodular opacities. No pleural effusions or pneumothorax. Mediastinum: Mediastinal contours appear normal. Heart size is normal. Bones and chest wall: No suspicious bony lesions. Overlying soft tissues appear unremarkable. IMPRESSION: Mild bibasilar patchy reticulonodular opacities, similar when compared to the CT from the day prior. Approved by: Ashkan Quiros M.D. on 04/21/2025 at 17:19
--- NOTE | 2025-04-21 15:42 | EKG_ITS ---
[address] [address] Test Date: 2025-04-21 Pat Name: Tanisha Greenfield Department: [facility] Room: Gender: Female Dev Ops Engineer: BOBBY : 1945 Requested By: Order Number: [id number] Reading MD: Reji Sanchez Measurements Intervals [place] Rate: 96 P: 68 MA: 160 QRS: 32 QRSD: 82 T: 43 QT: 356 QTc: 449 Interpretive Statements Sinus rhythm with premature supraventricular complexes Electronically Signed On 04-30-2025 13:51:37 PDT by Reji Sanchez
[2025-04-21] MEDS: ACETAMINOPHEN 325 MG TABLET 650 MG PO (16:18)
[2025-04-21 16:19] LABS: Add Manual Diff / Slide Review NO; Hematocrit 29.6 % (36-46); Hemoglobin 10.0 g/dL (12.0-16.0); Lymphocytes Absolute Auto 400 /uL (1100-4500); Mean Corpuscular HGB Conc 33.8 % (30-36); Mean Corpuscular Hemoglobin 31.3 PG (26-34); Mean Corpuscular Volume 92.4 fL (80-100); Platelet Count 361 X10^3/uL (150-400)
[2025-04-21] MEDS: SODIUM CHLORIDE 0.9% 1,000 ML 1000 ML IV (16:19)
[2025-04-21 16:22] LABS: INR 1.1 (0.9-1.3); Prothrombin Time 12.4 SECONDS (9.4-12.5)
[2025-04-21 16:25] LABS: PTT Partial Thromboplastin Tim 31 SECONDS (25.1-36.5)
[2025-04-21 16:26] LABS: Lactate (Lactic Acid) 1.0 mmol/L (0.7-2.1)
[2025-04-21 16:27] LABS: Alanine Aminotransferase 13 IU/L (<35); Albumin 4.0 g/dL (3.5-5.0); Albumin Globulin Ratio 1.3 (1.0-2.8); Alkaline Phosphatase 81 U/L (38-126); Blood Urea Nitrogen 16 mg/dL (7-17); Calcium 8.9 mg/dL (8.4-10.2); Carbon Dioxide 23 mmol/L (22-32); Chloride 106 mmol/L (98-107); Estimated Glomerular Filt Rate 51 mL/min (>60); Globulin 3.2 g/dL (1.7-4.1); Glucose 111 mg/dL (70-99); HEMOLYSIS < 15 (0-50); Lipase 36 U/L (23-300); Potassium 4.1 mmol/L (3.4-5.1); Sodium 133 mmol/L (137-145); Total Protein 7.2 g/dL (6.3-8.2)
[2025-04-21 16:43] LABS: Procalcitonin 0.062 ng/mL (<0.5)
--- NOTE | 2025-04-21 16:58 | ED_ITS ---
HPI - General Adult General Chief complaint: Fever Stated complaint: weakness Time Seen by Provider: 04/21/25 16:37 Source: patient Mode of arrival: Wheelchair History of Present Illness HPI narrative: Patient here for chills fever for the past couple of days. Patient recently treated for outpatient pneumonia by Dr. Breanna dalal however still has not feel better. Now requiring supplemental oxygen. Patient is a former smoker. Denies any chest pain. Fever noted on arrival. Fever medication provided. Patient in no distress. Related Data Home Medications ?Medication ?Instructions ?Recorded ?Confirmed losartan 100 mg tablet (Cozaar) 100 mg PO QDAY ##0 04/21/25 albuterol sulfate 90 mcg/actuation 1 puff inhalation P RN 05/15/21 04/21/25 aerosol inhaler (Ventolin HFA) escitalopram oxalate 10 mg tablet 10 mg PO DAILY 05/1504/21/25 montelukast 10 mg tablet 10 mg PO DAILY 05/15/2103/25 (Singulair) amlodipine 10 mg tablet 10 mg PO DAILY 02/15/2303/25 fluticasone 250 mcg-salmeterol 50 1 ea inhalation BID 02/19/24 04/21/25 mcg/dose blistr powdr for inhalation (Sophiaela Inhub) pantoprazole 40 mg tablet,delayed 40 mg PO DAILY 02/1804/21/25 release Previous Rx's ?Medication ?Instructions ?Recorded Disabled Parking Permit #1 ea 04/08/23 Allergies Allergy/AdvReac Type Severity Reaction Status Date / Time Penicillins (PENICILLINS) Allergy Unknown unknown Verified 04/21/25 15:38 procaine (From NOVOCAIN) Allergy Unknown unknown Verified 04/21/25 15:38 Review of Systems Review of Systems Narrative: GENERAL: Positive chills, fatigue, malaise, fever, sweats. HEENT: Negative sinus pain, ear pain, sore throat RESPIRATORY: Negative dyspnea, positive cough CARDIOVASCULAR: Negative chest pain, palpitations GASTROINTESTINAL: Negative vomiting, nausea, abdominal pain : Negative dysuria, frequency, hematuria MUSCULOSKELETAL: Negative muscle or bony pain SKIN: Negative rash, skin lesions NEUROLOGIC: Negative weakness, numbness ROS Unobtainable: All systems reviewed & are unremarkable except as noted in HPI and below Patient History Medical History Hyperlipemia Fatigue Hiatal hernia Degenerative joint disease of knee HNP (herniated nucleus pulposus) Spondylolisthesis of lumbar region Lumbar stenosis with neurogenic claudication Social History household members: none Smoking Status: Former smoker alcohol intake: never Smoking Status: Former smoker Exam Narrative Exam Narrative: GENERAL: in no distress, not toxic not dyspneic HEAD: Normocephalic. EYES: Pupils equal round ENT: Mucous membranes moist. NECK: Trachea midline. CARDIOVASCULAR: Regular rate and rhythm RESPIRATORY: Patient has very coarse lung sounds by lateral bases. Able speak full sentences. Feels very short of breath when she is walking in the hallway. GASTROINTESTINAL: Abdomen soft, non-tender EXTREMITIES: No gross deformities. BACK: No flank tenderness. NEURO: AOx4. Clear speech SKIN: Warm and dry PSYCH: Not anxious, is cooperative Initial Vital Signs Initial Vital Signs: Vital Signs Temperature 101.4 F H 04/21/25 15:38 Pulse Rate 107 H 04/21/25 15:38 Respiratory Rate 17 04/21/25 15:38 Blood Pressure 191/96 H 04/21/25 15:38 Pulse Oximetry 93 04/21/25 15:38 Oxygen Delivery Method Room Air 04/21/25 15:38 Course Orders Ordered: Albuterol (Albuterol 2.5 Mg/3 Ml Neb (Adult)) 2.5 mg INH [id number] PRN PRN Reason: Shortness Of Breath Amlodipine Besylate (Amlodipine 5 Mg Tablet) 10 mg PO DAILY [facility] Dexamethasone (Dexamethasone 10 Mg/Ml Vial) 6 mg IV DAILY [facility] Last Admin: 04/21/25 20:01 Dose: 6 mg Documented By: DAISHA Escitalopram Oxalate (Escitalopram 10 Mg Tablet) 10 mg PO DAILY [facility] Cefepime HCl 2 gm/ Sodium (Chloride) 100 mls @ 200 mls/hr IV Q12H [facility] Last Infusion: 04/21/25 20:59 Dose: Infused Documented By: Admin: 04/21/25 20:29 Dose: 200 mls/hr Documented By: DAISHA Remdesivir 100 mg/ Sodium (Chloride) 250 mls @ 250 mls/hr IV DAILY [facility] Stop: 04/25/25 09:59 Ondansetron HCl (Ondansetron 4 Mg/2 Ml Inj) 4 mg IV NOW PRN PRN Reason: Nausea And Vomiting Ondansetron HCl (Ondansetron 4 Mg Odt) 4 mg PO NOW PRN PRN Reason: Nausea And Vomiting Pantoprazole Sodium (Pantoprazole Dr 40 Mg Tablet) 40 mg PO DAILY [facility] Discontinued Medications Acetaminophen (Acetaminophen 325 Mg Tablet) 650 mg PO NOW ONE Stop: 04/21/25 16:09 Last Admin: 04/21/25 16:18 Dose: 650 mg Documented By: BOBBY Albuterol (Albuterol 2.5 Mg/3 Ml Neb (Adult)) 2.5 mg INH [id number] [facility] Last Admin: 04/21/25 23:23 Dose: Not Given Documented By: Admin: 04/21/25 20:02 Dose: Not Given Documented By: KRYSTIN Budesonide (Budesonide 0.5 Mg/2 Ml Neb) 0.5 mg INH RTBID [facility] Last Admin: 04/21/25 20:02 Dose: Not Given Documented By: KRYSTIN Sodium Chloride (Normal Saline 0.9%) 1,000 mls @ 1,000 mls/hr IV BOLUS ONE Stop: 04/21/25 16:40 Last Infusion: 04/21/25 17:55 Dose: Infused Documented By: Admin: 04/21/25 16:19 Dose: 1,000 mls/hr Documented By: BOBBY Ceftriaxone Sodium 2,000 mg/ (Sodium Chloride) 100 mls @ 200 mls/hr IV NOW ONE Stop: 04/21/25 16:58 Last Infusion: 04/21/25 17:55 Dose: Infused Documented By: Admin: 04/21/25 17:21 Dose: 200 mls/hr Documented By: BOBBY Doxycycline Hyclate 100 mg/ (Sodium Chloride) 100 mls @ 100 mls/hr IV NOW ONE Stop: 04/21/25 16:58 Last Infusion: 04/21/25 19:55 Dose: Infused Documented By: Admin: 04/21/25 18:51 Dose: 100 mls/hr Documented By: CLARICE Vital Signs Vital signs: Vital Signs - 8 hr 04/21/25 15:38 04/21/25 16:43 Temperature 101.4 F H Pulse Rate 107 H 96 H Respiratory Rate 17 20 Blood Pressure 191/96 H Pulse Oximetry 93 93 Oxygen Delivery Method Room Air Medical Decision Making Lab Data 04/21/25 16:05 04/21/25 16:05 Labs: Lab Results 04/21/25 Range/Units 16:05 WBC 7.7 (4.5-11.0) X10^3/uL RBC 3.21 L (4.0-5.2) X10^6/uL Hgb 10.0 L (12.0-16.0) g/dL Hct 29.6 L (36-46) % MCV 92.4 (80-100) fL MCH 31.3 (26-34) PG MCHC 33.8 (30-36) % RDW 16.9 H (11.6-14.8) % Plt Count 361 (150-400) X10^3/uL Neut % (Auto) 81.2 H (50-75) % Lymph % (Auto) 4.7 L (25-40) % Mcclain % (Auto) 10.9 (3-14) % Eos % (Auto) 1.8 L (2-4) % Baso % (Auto) 1.4 (0-2) % Neut # (Auto) 6300 (3138-7895) /uL Lymph # (Auto) 400 L (7037-0530) /uL Mcclain # (Auto) 800 (0-900) /uL Eos # (Auto) 100 (0-450) /uL Baso # (Auto) 100 (0-100) /uL PT 12.4 (9.4-12.5) SECONDS INR 1.1 (0.9-1.3) APTT 31 (25.1-36.5) SECONDS Sodium 133 L (137-145) mmol/L Potassium 4.1 (3.4-5.1) mmol/L Chloride 106 (98-107) mmol/L Carbon Dioxide 23 (22-32) mmol/L BUN 16 (7-17) mg/dL Creatinine 1.09 H (0.52-1.04) mg/dL Estimated GFR 51 L (>60) mL/min BUN/Creatinine Ratio 14.7 (6-22) Glucose 111 H (70-99) mg/dL Lactate 1.0 (0.7-2.1) mmol/L Calcium 8.9 (8.4-10.2) mg/dL Total Bilirubin 0.5 (0.2-1.3) mg/dL AST 24 (14-36) IU/L ALT 13 (<35) IU/L Alkaline Phosphatase 81 (38-126) U/L Total Protein 7.2 (6.3-8.2) g/dL Albumin 4.0 (3.5-5.0) g/dL Globulin 3.2 (1.7-4.1) g/dL Albumin/Globulin Ratio 1.3 (1.0-2.8) Lipase 36 (23-300) U/L Procalcitonin 0.062 (<0.5) ng/mL SARS-CoV-2 (PCR) Positive H (Negative) Influenza A (RT-PCR) Flu a negative (NEGATIVE) Influenza B (RT-PCR) Flu b negative (NEGATIVE) RSV (PCR) Negative (Negative) MDM Narrative Medical decision making narrative: Patient here for chills fever for the past couple of days. Patient recently treated for outpatient pneumonia by Dr. Breanna dalal however still has not feel better. Now requiring supplemental oxygen. Patient is a former smoker. Denies any chest pain. Fever noted on arrival. Fever medication provided. Patient in no distress. After history and exam, CBC CMP procalcitonin lactic acid blood culture chest x- ray EKG admit, Rocephin doxycycline, fever control MDM Differential considered: Includes but not limited to community-acquired pneumonia bronchitis viral upper respiratory infection Medical records reviewed: No recent visit for this complaint Lab Test results independently reviewed as above. Pertinent findings: WBC 7.7 hemoglobin 10.0 INR 1.1 sodium 133 potassium 4.1 GFR 51 procalcitonin 0.062 lipase 36 lactic acid 1.0, positive COVID Independently reviewed EKG sinus rhythm rate 96 Imaging studies independently reviewed: Chest x-ray bilateral patchy infiltrates Consultations: Spoke with hospitalist, dr cameron, will admit pt Re-evaluations: 5:00 p.m.. Reviewed results with patient, agrees for admission. Wearing supplemental oxygen. Antibiotics have been started. 5:23 p.m.. Patient dropped down to 88% room air on walking in hallway room air. Discussion: Appropriate for admission for antibiotics for community-acquired pneumonia. Patient recently on antibiotics and has not improved. She was on Levaquin. Diagnosis: Community-acquired pneumonia Discharge Plan Departure Patient Disposition: Admitted as Observation Clinical Impression: COVID Community acquired pneumonia Qualifiers: Laterality: unspecified laterality Qualified Code(s): J18.9 - Pneumonia, unspecified organism Admit Date/Time: 04/21/25 17:30 Admit Provider: Yosi Cameron
[2025-04-21] MEDS: cefTRIAXone 2,000 MG in SODIUM CHLORIDE 0.9% 100 ML 200 MG IV (17:21)
[2025-04-21 17:32] LABS: Influenza A - CEPHEID Flu A NEGATIVE (NEGATIVE); Influenza B - CEPHEID Flu B NEGATIVE (NEGATIVE)
[2025-04-21 17:37] LABS: COVID-19 CEPHEID 4-PLEX PCR POSITIVE (Negative)
--- NOTE | 2025-04-21 17:54 | PC.NURSE ---
87%-88% spO2 on ambulation.
--- NOTE | 2025-04-21 17:56 | PC.NURSE ---
Pt placed on 2L O2 per MD Edouard order. 93% RA when resting.
--- NOTE | 2025-04-21 18:22 | PC.NURSE ---
Pt reports fever malaise, weakness, cough, some difficulty breathing on exertion
[2025-04-21] MEDS: DOXYCYCLINE 100 MG in SODIUM CHLORIDE 0.9% 100 ML IV (18:51)
[2025-04-21] MEDS: DEXAMETHASONE 10 MG/ML VIAL 6 MG IV (20:01)
[2025-04-21] MEDS: CEFEPIME 2 GM in SODIUM CHLORIDE 0.9% 100 ML IV (20:29)
[2025-04-22 05:00] VITALS: BP 108/54; PULSE 80; RESP 18; TEMP 37.1; O2SAT 94
[2025-04-22] MEDS: CEFEPIME 2 GM in SODIUM CHLORIDE 0.9% 100 ML IV ×2 (09:16→21:03)
[2025-04-22] MEDS: AMLODIPINE 5 MG TABLET 10 MG PO (09:16)
[2025-04-22] MEDS: ESCITALOPRAM 10 MG TABLET PO (09:16)
[2025-04-22] MEDS: PANTOPRAZOLE DR 40 MG TABLET PO (09:17)
[2025-04-22] MEDS: DEXAMETHASONE 10 MG/ML VIAL 6 MG IV (09:20)
[2025-04-22] MEDS: REMDESIVIR 100 MG in SODIUM CHLORIDE 0.9% 250 ML 250 MG IV (10:15)
[2025-04-22 12:00] VITALS: BP 116/68; PULSE 80; RESP 19; TEMP 36.5; O2SAT 96
[2025-04-22] MEDS: DOXYCYCLINE 100 MG in SODIUM CHLORIDE 0.9% 100 ML IV (13:15)
--- NOTE | 2025-04-22 15:37 | CM.DANOTE ---
Patient is an 79 yo female who was admitted INPT Status on 04/21/25 for COVID/pneumonia. Pt has [facility] and [employer] for insurance and her PCP is Dr. Breanna Cervantes at [facility]. EMR was reviewed. Per MD, pt failed outpt PNA tx and admitted for SOB and determined COVID+/PNA. Was on 2LO2 but now attempting to wean to room air. Not yet stable for discharge today. Due to triage needs, no bedside assessment completed today. Per RN, Pt has been independent in room and able to ambulate with SBA and tolerating diet and no concerns noted. Pt's son was bedside earlier today. Currently no PT/OT needs identified at this time. Patient resides in [place] alone and is active and independent at baseline, does not typically use DME for ambulation. Pt's son/POA, Dr. Whitlock, lives next door and can assist as needed. Plan: SW to follow to confirm safe plan of discharge home when stable with supportive local son and any further identified discharge planning needs. ZENOBIA [place] Discharge Planning/Care Management CM Discharge Assessment Start: 04/21/25 17:50 Freq: Status: Active Protocol: Document 04/22/25 15:30 BF (Rec: 04/22/25 15:35 BF [id number]) Discharge Planning Assessment Assigned Discharge ZENOBIA Jessica Damage Prevention Coordinator DPOA/Assigned son Dr. Whitlock Designee Name Contact Information [phone] Advance Directives? No Advance Directives No on File History Provided By Patient,Family Member,Medical Record Has Patient been No admitted in last 30 days? Prior Living House Arrangements Comment SON LIVES NEXT DOOR Household Members none Type of Drives own vehicle transporation used prior to admit Independent with ADL Yes 's Is patient alert and Yes oriented? Needs Assistance Home Chores / Shopping With Caregiver for No Another Barriers to No Discharge Discharge Plan Home Transportation Likely son to transport if safe for home Arrangement Referrals Initiated None needed Additional Comment Pending progress, currently no PT needs Review Status In Process Please Provide Date 04/22/25 Initial DC Assessment Was Performed Next Review Type Continued Stay Review
--- NOTE | 2025-04-22 17:37 | PM.HP.1 ---
History of Present Illness History of Present Illness Date Patient Seen: 04/21/25 Chief complaint: COVID pneumonia Narrative: Chief complaint: Increasing cough congestion and shortness for breath with exertion despite level with positive COVID test History of present illness: 79-year-old female with a history of asthma recently treated with Levaquin for upper and lower respiratory infection initially started to improve and then started to become more congested and then have increasing dyspnea with exertion. Cough is persistent but nonproductive. Patient did not have any fever or chills with this episode. In the emergency department workup was significant for chest x-ray with diffuse reticular lower lobe airspace appearance on plain x-ray COVID test white count 7.7 81% neutrophils sodium 133 potassium 4.1 BUN 16 creatinine 1.09 For past medical history social history surgical history and family history please see the bottom of the note Review of systems: No unusual weight loss or weight gain No chest pain or palpitations No nausea vomiting diarrhea No paresthesia paresis No urinary symptoms Physical exam: Very pleasant elderly female no acute distress at the time of my examination HEENT unremarkable Lungs with diffuse wheezes and air trapping good air movement but somewhat restricted no crackle Abdomen is benign Extremities no edema Alert and oriented cogent nonfocal neurologic exam Extremities no edema For objective laboratory and imaging studies please see the bottom of the note: Assessment and plan: COVID pneumonia with possible failure of Levaquin either due to MRSA or Pseudomonas Cefepime doxycycline Decadron and remdesivir Bronchodilators as needed DVT prophylaxis: SCDs only Code status: Full code blue 55 minutes were involved in management of this time including [id number] patient evaluation discussion with son elevation examination review of laboratory and imaging findings including direct visualization of imaging by myself and consultation of the record [facility] Medical History Hyperlipemia Fatigue Hiatal hernia Degenerative joint disease of knee HNP (herniated nucleus pulposus) Spondylolisthesis of lumbar region Lumbar stenosis with neurogenic claudication Social History household members: none Smoking Status: Former smoker alcohol intake: never Meds Home Medications and Allergies Home Medications ?Medication ?Instructions ?Recorded ?Confirmed ?Type losartan 100 mg tablet (Cozaar) 100 mg PO QDAY ##0 04/12/17 04/21/25 History albuterol sulfate 90 mcg/actuation 1 puff inhalation PRN 05/15/21 04/21/25 History aerosol inhaler (Ventolin HFA) escitalopram oxalate 10 mg tablet 10 mg PO DAILY 05/15/21 04/21/25 History montelukast 10 mg tablet 10 mg PO DAILY 05/15/21 04/21/25 History (Singulair) amlodipine 10 mg tablet 10 mg PO DAILY 02/15/23 04/21/25 History Disabled Parking Permit #1 ea 04/08/23 04/21/25 Rx fluticasone 250 mcg-salmeterol 50 1 ea inhalation BID 02/19/24 04/21/25 History mcg/dose blistr powdr for inhalation (Wixela Inhub) pantoprazole 40 mg tablet,delayed 40 mg PO DAILY 02/19/24 04/21/25 History release cefdinir 300 mg capsule 300 mg PO BID #10 caps 04/22/25 Rx dexamethasone 6 mg tablet 6 mg PO DAILY #3 tabs 04/22/25 Rx doxycycline hyclate 100 mg capsule 100 mg PO BID #10 caps 04/22/25 Rx Allergies Allergy/AdvReac Type Severity Reaction Status Date / Time Penicillins (PENICILLINS) Allergy Unknown unknown Verified 04/22/25 15:15 procaine (From NOVOCAIN) Allergy Unknown unknown Verified 04/21/25 15:38 Exam Vital Signs (past 8 hours): - 04/22/25 12:00 Temperature 97.7 F Pulse Rate 80 Respiratory Rate 19 Blood Pressure 116/68 Pulse Oximetry 96 Oxygen Flow Rate 0 Oxygen Delivery Method Room Air Oxygen Flow Rate 0 Objective Labs 04/21/25 16:05 04/21/25 16:05 Labs: Laboratory Results - last 24 hr 04/21/25 16:05 SARS-CoV-2 (PCR) Positive H Influenza A (RT-PCR) Flu a negative Influenza B (RT-PCR) Flu b negative RSV (PCR) Negative Assessment & Plan Time-Based Coding :: [TOTAL MINUTES] spent with patient and on the chart (including review of chart, obtaining history, exam, reviewing outside data, placing orders, documenting exam and treatment plan, and counseling patient) on [DATE]. Quality VTE Deep Vein Thrombosis/Pulmonary Embolism Present on Admission: No
--- NOTE | 2025-04-22 17:42 | PM.PN.1 ---
Subjective Subjective Date Patient Seen: 04/22/25 Interval history: Chief complaint: Increasing cough congestion and shortness for breath with exertion despite level with positive COVID test History of present illness: 79-year-old female with a history of asthma recently treated with Levaquin for upper and lower respiratory infection initially started to improve and then started to become more congested and then have increasing dyspnea with exertion. Cough is persistent but nonproductive. Patient did not have any fever or chills with this episode. In the emergency department workup was significant for chest x-ray with diffuse reticular lower lobe airspace appearance on plain x-ray COVID test white count 7.7 81% neutrophils sodium 133 potassium 4.1 BUN 16 creatinine 1.09 Hospital course: 04/22: Patient did well overnight slept well nose night sweats or chills fevers no requirement of oxygen cough is improved and shortness of breath has also markedly improved Review of systems: No unusual weight loss or weight gain No chest pain or palpitations No nausea vomiting diarrhea No paresthesia paresis No urinary symptoms Physical exam: Very pleasant elderly female no acute distress at the time of my examination HEENT unremarkable Lungs clear from apices to bases Abdomen is benign Extremities no edema Alert and oriented cogent nonfocal neurologic exam Extremities no edema For objective laboratory and imaging studies please see the bottom of the note: Assessment and plan: COVID pneumonia with possible failure of Levaquin either due to MRSA or Pseudomonas Cefepime doxycycline Decadron and remdesivir for 1 more night Bronchodilators as needed Discharge in a.m. on oral cefdinir doxycycline and Decadron (already called into [facility]) DVT prophylaxis: SCDs only Code status: Full code blue 35 minutes were involved in management of this time including [id number] patient evaluation discussion with son elevation examination review of laboratory and imaging findings including direct visualization of imaging by myself and consultation of the record Exam Vital Signs (past 8 hours): - 04/22/25 12:00 Temperature 97.7 F Pulse Rate 80 Respiratory Rate 19 Blood Pressure 116/68 Pulse Oximetry 96 Oxygen Flow Rate 0 Oxygen Delivery Method Room Air Oxygen Flow Rate 0 Objective Labs 04/21/25 16:05 04/21/25 16:05 [facility] Medical History Hyperlipemia Fatigue Hiatal hernia Degenerative joint disease of knee HNP (herniated nucleus pulposus) Spondylolisthesis of lumbar region Lumbar stenosis with neurogenic claudication Social History household members: none Smoking Status: Former smoker alcohol intake: never Assessment & Plan Time-Based Coding :: [TOTAL MINUTES] spent with patient and on the chart (including review of chart, obtaining history, exam, reviewing outside data, placing orders, documenting exam and treatment plan, and counseling patient) on [DATE]. Quality VTE Deep Vein Thrombosis/Pulmonary Embolism Present on Admission: No
[2025-04-22 19:00] VITALS: BP 113/59; PULSE 72; RESP 18; TEMP 36.3; O2SAT 94
[2025-04-23] MEDS: DOXYCYCLINE 100 MG in SODIUM CHLORIDE 0.9% 100 ML IV (01:30)
--- NOTE | 2025-04-23 08:06 | PM.DS.IH.1 ---
History of Present Illness History of Present Illness Date Patient Seen: 04/23/25 Time Patient Seen: 07:55 Chief complaint: COVID pneumonia Narrative: 79-year-old female with a history of asthma recently treated with Levaquin for upper and lower respiratory infection initially started to improve and then started to become more congested and then have increasing dyspnea with exertion. Cough is persistent but nonproductive. Patient did not have any fever or chills with this episode. In the emergency department workup was significant for chest x-ray with diffuse reticular lower lobe airspace appearance on plain x-ray COVID test white count 7.7 81% neutrophils sodium 133 potassium 4.1 BUN 16 creatinine 1.09 Discharge Providers Provider Date of admission: 04/21/25 17:30 Discharge Date: 04/23/25 Primary care physician: Breanna Cervantes MD Discharge provider: Burton Null MD Summary Hospital Course Discharge Diagnosis: 1. COVID pneumonia, possible secondary bacterial pneumonia 2. Reactive airways disease 3. Large hiatal hernia on CT scan Hospital Course: Patient was admitted and treated with broad-spectrum antibiotics, remdesivir and dexamethasone. She was not hypoxic. She improved dramatically in the 1st 24 hours. By the 2nd day of hospitalization she was ambulatory, eating well, and interested in discharge home. No other issues arose. Status at Discharge Cognitive/behavioral status at discharge: oriented Functional status at discharge: independent ambulation Overall status at discharge: patient is progressing back to baseline Time Spent with Patient Time spent: Less than 30 minutes Exam Vital Signs (past 8 hours): Oxygen Delivery Method Room Air Oxygen Flow Rate 0 Narrative Exam Narrative: HEENT unremarkable Lungs clear from apices to bases Abdomen is benign Extremities no edema Alert and oriented cogent nonfocal neurologic exam Extremities no edema Objective Imaging *: Radiologist's impression: 1. Chest x-ray 04/19/2025: No consolidation. Prominent pulmonary markings most pronounced at the lung bases. This finding could be due to interstitial lung disease. Consider further evaluation with CT chest or high-resolution chest CT. 2. Chest CT without contrast 04/20/2025: Abnormal peribronchial thickening and patchy opacities predominantly in the lower lobes as discussed above. Mildly enlarged lymph nodes as discussed above. Left renal peripelvic cyst cannot exclude hydronephrosis partially imaged. Large hiatal hernia with wall thickening distal esophagus into the stomach. Follow-up suggested. 3. Chest x-ray 04/21/2025: Mild bibasilar patchy reticulonodular opacities, similar when compared to the CT from the day prior. Labs 04/21/25 16:05 04/21/25 16:05 ON LICENSE OF [facility] Medical History Degenerative joint disease of knee Fatigue Hiatal hernia HNP (herniated nucleus pulposus) Hyperlipemia Lumbar stenosis with neurogenic claudication Spondylolisthesis of lumbar region Social History household members: none Smoking Status: Former smoker alcohol intake: never Discharge Plan Discharge Plan Patient Disposition: Home Discharge orders & Medications Prescriptions: New cefdinir 300 mg capsule 300 mg PO BID Qty: 10 0RF doxycycline hyclate 100 mg capsule 100 mg PO BID Qty: 10 0RF dexamethasone 6 mg tablet 6 mg PO DAILY Qty: 3 0RF Continued losartan [Cozaar] 100 MG tablet 100 mg PO QDAY Qty: 0 (DME) Disabled Parking Permit See Rx Instructions .ROUTE .MEDSUPPLY Qty: 1 0RF Rx Instructions: Patient qualifies for disabled parking as per the attached form. montelukast [Singulair] 10 mg tablet 10 mg PO DAILY escitalopram oxalate 10 mg tablet 10 mg PO DAILY Patient Comments: TAKE 1 TABLET BY MOUTH EVERY DAY albuterol sulfate [Ventolin HFA] 90 mcg/actuation HFA aerosol inhaler 1 puff inhalation PRN Patient Comments: INHALE 2 PUFFS EVERY 4 HOURS NEEDED amlodipine 10 mg tablet 10 mg PO DAILY fluticasone propion-salmeterol [Wixela Inhub] 250-50 mcg/dose blister with device 1 ea inhalation BID pantoprazole 40 mg tablet,delayed release (DR/EC) 40 mg PO DAILY Follow up/Referrals: Breanna Cervantes MD [Primary Care Provider, Internal Medicine] Visit Report/Discharge Packet Stand Alone Forms: Patient Portal/API, Stroke Signs & Symptoms Discharge Data Primary Care Provider: Breanna Cervantes Quality VTE Deep Vein Thrombosis/Pulmonary Embolism Present on Admission: No MIPS - Admit I confirm the patient?s Advance Care Plan is present, Code status is documented, Surrogate decision maker is in patient?s record [If Yes, STOP here]: Yes MIPS - Meds 'Current medications' to include all prescriptions, [id number] products, herbals, cannabis/cannabidiol products, and vitamin/mineral/dietary (nutritional) supplements. I have utilized all available resources to obtain, update, or review the patient?s current medications. [If Yes, STOP here]: Yes MIPS - DC The patient has a history of heart transplant or Left Ventricular Assist Device (LVAD). If yes, STOP here.: No The patient has current or prior documentation of left ventricular ejection fraction (LVEF) less than or equal to 40%, or moderate or severely depressed left ventricular systolic function.: No A. The patient was prescribed or already taking an Angiotensin-Converting Enzyme (LASHANDA) Inhibitor, or Angiotensin Receptor Treva (ARB).: Yes B. The patient was prescribed or already taking a beta-treva. [If Yes to Both A & B, STOP here]: No Patient not prescribed/taking LASHANDA or ARB, no reason given.: No Patient not prescribed/taking beta-treva, no reason given.: No PROFEE Charge Codes Discharge inpatient/observation: [id number]
--- NOTE | 2025-04-23 09:32 | CM.DPNOTE ---
DCP Continued: Reviewed EMR and team rounds for pt?s medical status. Per MD, discharge orders placed and cleared to return home with family. No identified dc needs at this time. Plan: Anticipating dc home with son to transport. CM Team will continue to follow for coordination of discharge plans. VIRGIE Newell
[2025-04-23] MEDS: AMLODIPINE 5 MG TABLET 10 MG PO (10:30)
[2025-04-23] MEDS: ESCITALOPRAM 10 MG TABLET PO (10:30)
[2025-04-23] MEDS: PANTOPRAZOLE DR 40 MG TABLET PO (10:30)
[2025-04-23] MEDS: BENZOCAINE/MENTHOL 1 LOZ PKT 1 EACH PO (12:02)
[2025-04-23 12:43] VITALS: BP 121/67; PULSE 77; RESP 16; TEMP 36.4; O2SAT 94
== END 2025-04-23 13:35 | disposition home or self-care (01) | DRG 177 ==
LOC: ED 17:03 → AC 17:58
PROVIDERS: Admitting Provider Internal Medicine; Emergency Provider Emergency Medicine; PCP Internal Medicine; Referring Provider Emergency Medicine; Visit Provider Internal Medicine
DX: U07.1 COVID-19 (principal); J12.82 Pneumonia due to coronavirus disease 2019; J15.9 Unspecified bacterial pneumonia; J45.909 Unspecified asthma, uncomplicated; K44.9 Diaphragmatic hernia without obstruction or gangrene; Z87.891 Personal history of nicotine dependence; R05.3 Chronic cough; R59.0 Localized enlarged lymph nodes; N28.1 Cyst of kidney, acquired
CPT/HCPCS: 36415; 71045; 71046; 71250; 80053; 83605; 83690; 84145; 85025; 85610; 85730; 87040; 87637; 93005; 96361; 96365; 99284; J0692; J0696; J1100

== ENCOUNTER → 2025-07-12 10:56 | Outpatient (CLI) | payer MEDICARE, SELFPAY ==
[2025-04-21 18:20] VITALS: BMI 25.4
== END ==
PROVIDERS: PCP Family Medicine; Referring Provider Family Medicine; Visit Provider Family Medicine
DX: R06.02 Shortness of breath (principal); U09.9 Post COVID-19 condition, unspecified; Z87.891 Personal history of nicotine dependence; R94.2 Abnormal results of pulmonary function studies
CPT/HCPCS: 94060; 94726; 94729